=== PATIENT | female | born 1955 | race Caucasian/White ===

== ENCOUNTER 2021-12-12 15:14 | Observation (INO) ==
[2021-12-12] MEDS ORDERED: 0.9 % Sodium Chloride 1,000 ML IVC ONE (15:27)
[2021-12-12] MEDS ORDERED: Acetaminophen 650 MG RECTAL SUPP RC ONE (15:29)
[2021-12-12 15:45] LABS: Basophils % 0.3 %; Hemoglobin 12.4 g/dL (11.5-15.4); Immature Granulocytes % 0.3 % (0-4); Lymphocytes % 8.8 %; Mean Corpuscular HGB Conc 33.5 g/dL (31.6-35.5); Mean Corpuscular Hemoglobin 28.2 pg (28.0-33.3); Mean Corpuscular Volume 84.1 fL (83.0-100.0); Mean Platelet Volume 9.7 fL (9.4-12.4); Monocytes # 0.8 K/mcL (0.0-1.3); Monocytes % 7.1 %; Neutrophils # 9.6 K/mcL (1.6-8.9); Platelet Count 206 K/mcL (140-400); Red Cell Distribution Width 13.9 % (11.5-14.5); Segmented Neutrophils % 83.5 %; White Blood Count 11.5 K/mcL (4.3-11.1)
[2021-12-12 15:46] LABS: Bilirubin,Urine Negative (Negative); Blood,Urine Small (Negative); Clarity,Urine Cloudy (Clear); Color,Urine Yellow (Yellow); Glucose,Urine (UA) Normal (Normal); Ketones,Urine Negative (Negative); Leukocyte Esterase,Urine Small (Negative); Nitrite,Urine Positive (Negative); Protein,Urine 100 mg/dL (Neg-Trace); Specific Gravity,Urine >= 1.030 (1.010-1.025); Urobilinogen,Urine Normal (Normal)
[2021-12-12 15:51] LABS: INR 1.4; Prothrombin Time 15.5 Seconds (9.4-12.1)
[2021-12-12 15:53] LABS: VBG HCO3 23 mEq/L (21-27); VBG PCO2 30 mmHg (41-51); VBG PH 7.49 pH Units (7.32-7.42); VBG PO2 71 mmHg (25-50)
[2021-12-12 15:54] LABS: Activated Partial Thrombo Time 31.2 Seconds (26.0-36.0)
[2021-12-12 15:55] LABS: Bacteria,Urine Many per hpf (None-Few); Squamous Epithelial Cell,Urine Moderate per hpf (None-Few); WBC,Urine 30-50 per hpf (0-3)
[2021-12-12 16:02] LABS: Troponin I 0.03 ng/mL (< 0.04)
[2021-12-12 16:03] LABS: Amphetamine Screen,Urine Negative ng/mL (Cutoff=1000); Barbiturate Screen,Urine Negative ng/mL (Cutoff=200); Benzodiazepines Screen,Urine Negative ng/mL (Cutoff=200); Cannabinoid Screen,Urine Negative ng/mL (Cutoff = 50); Cocaine Screen,Urine Negative ng/mL (Cutoff= 300); Opiate Screen,Urine Negative ng/mL (Cutoff=300); Phencyclidine Screen,Urine Negative ng/mL (Cutoff=25)
[2021-12-12 16:04] LABS: Alanine Aminotransferase 17 Units/L (7-52); Albumin 3.6 g/dL (3.5-5.7); Albumin/Globulin Ratio 0.9 (1.1-2.2); Alkaline Phosphatase 92 Units/L (34-104); Aspartate Amino Transferase 23 Units/L (13-39); BUN/Creatinine Ratio 18 (6-26); Bilirubin,Direct 0.3 mg/dL (0.0-0.2); Bilirubin,Indirect 0.8 mg/dL (0.0-1.0); Bilirubin,Total 1.1 mg/dL (0.3-1.0); Blood Urea Nitrogen 18 mg/dL (8-23); Calcium 9.6 mg/dL (8.6-10.3); Carbon Dioxide 25 mEq/L (23-29); Chloride 97 mEq/L (98-107); Creatine Kinase 44 Units/L (30-223); Ethanol < 10 mg/dL (Less than 10); Globulin 3.8 g/dL (2.4-3.5); Glucose 169 mg/dL (70-105); Osmolality,Calculated 282 (280-300); Potassium 3.7 mEq/L (3.5-5.1); Sodium 133 mEq/L (136-145); Total Protein 7.4 g/dL (6.4-8.9); eGFR For African Americans > 60 (> 60); eGFR For Non-African Americans 54 (> 60)
[2021-12-12] MEDS ORDERED: cefTRIAXone 1,000 MG in 0.9 % Sodium Chloride Mini Bag 100 ML IVPB ONE (16:04)
[2021-12-12] MEDS ORDERED: 0.9 % Sodium Chloride 500 ML IVC ONE (16:04)
[2021-12-12] MEDS ORDERED: levoFLOXacin 750 MG/150 ML 750 MG/150 ML BAG IVPB ONE (16:04)
[2021-12-12 16:16] LABS: Thyroid Stimulating Hormone 3.611 mcIU/mL (0.340-5.600)
[2021-12-12] MEDS ORDERED: 0.9 % Sodium Chloride 1,000 ML IVC SCH ×2 (16:45→18:24)
[2021-12-12] MEDS ORDERED: Albuterol 2.5 MG/3 ML NEBULIZER IH PRN (18:24)
[2021-12-12] MEDS ORDERED: Ondansetron 4 MG/2 ML VIAL IVP PRN (18:24)
[2021-12-12] MEDS ORDERED: Naloxone 0.4 MG/ML INJ IVP PRN (18:24)
[2021-12-12] MEDS: 0.9 % Sodium Chloride 1,000 ML IVC SCH (19:51)
[2021-12-12] MEDS ORDERED: carvediloL 6.25 MG TABLET PO SCH (21:00)
[2021-12-12] MEDS ORDERED: *HR* Midazolam HCl 5 MG/5 ML VIAL IVP ONE (22:19)
[2021-12-12] MEDS ORDERED: levETIRAcetam 1,000 MG in 0.9 % Sodium Chloride 100 ML IVPB ONE (23:00)
[2021-12-12] MEDS ORDERED: Acetaminophen 650 MG RECTAL SUPP RC PRN (23:32)
[2021-12-13 00:39] VITALS: BP 110/67; PULSE 84; RESP 20; TEMP 98.6; O2SAT 99
[2021-12-13] MEDS: 0.9 % Sodium Chloride 1,000 ML IVC SCH (00:45)
[2021-12-13 00:49] LABS: Basophils % 0.3 %; Hematocrit 34.1 % (35.3-44.9); Hemoglobin 11.2 g/dL (11.5-15.4); Immature Granulocytes % 0.3 % (0-4); Lymphocytes # 0.7 K/mcL (0.6-4.6); Lymphocytes % 9.6 %; Mean Corpuscular HGB Conc 32.8 g/dL (31.6-35.5); Mean Corpuscular Hemoglobin 28.4 pg (28.0-33.3); Mean Corpuscular Volume 86.5 fL (83.0-100.0); Mean Platelet Volume 9.9 fL (9.4-12.4); Monocytes # 0.7 K/mcL (0.0-1.3); Monocytes % 8.7 %; Neutrophils # 6.3 K/mcL (1.6-8.9); Platelet Count 149 K/mcL (140-400); Red Blood Count 3.94 M/mcL (3.82-4.97); Red Cell Distribution Width 14.1 % (11.5-14.5); Segmented Neutrophils % 81.1 %; White Blood Count 7.7 K/mcL (4.3-11.1)
[2021-12-13 01:02] LABS: BUN/Creatinine Ratio 19 (6-26); Blood Urea Nitrogen 17 mg/dL (8-23); Calcium 8.7 mg/dL (8.6-10.3); Carbon Dioxide 22 mEq/L (23-29); Chloride 106 mEq/L (98-107); Glucose 142 mg/dL (70-105); Magnesium 1.6 mg/dL (1.6-2.6); Osmolality,Calculated 290 (280-300); Phosphorous 2.5 mg/dL (2.7-4.5); Potassium 3.2 mEq/L (3.5-5.1); Sodium 138 mEq/L (136-145); eGFR For African Americans > 60 (> 60); eGFR For Non-African Americans > 60 (> 60)
[2021-12-13] MEDS ORDERED: *HR* Enoxaparin 40 MG/0.4 ML SYRINGE SQ SCH (07:00)
[2021-12-13] MEDS ORDERED: *HR* SitaGLIPtin 100 MG TABLET PO SCH (09:00)
[2021-12-13] MEDS ORDERED: Isosorbide MONOnitrate (24 HR) 30 MG TAB.ER.24H PO SCH (09:00)
[2021-12-13] MEDS ORDERED: Aspirin Enteric Coated 81 MG Tablet PO SCH (09:00)
[2021-12-13 12:48] LABS: Adenovirus F 40/41 PCR Not detected (Not detect); Astrovirus PCR Not detected (Not detect); C.difficile Toxin A/B Gene PCR Not detected (Not detect); Campylobacter by PCR Not detected (Not detect); Cryptosporidium by PCR Not detected (Not detect); Cyclospora cayetanensis PCR Not detected (Not detect); Entamoeba histolytica PCR Not detected (Not detect); Enteroaggregative E.coli(EAEC) Not detected (Not detect); Enteropathogenic E.coli(EPEC) Not detected (Not detect); Enterotoxigenic E.coli (ETEC) Not detected (Not detect); Giardia lamblia PCR Not detected (Not detect); Norovirus GI/GII PCR Not detected (Not detect); Plesiomonas shigelloides PCR Not detected (Not detect); Rotavirus A PCR Not detected (Not detect); Salmonella PCR Not detected (Not detect); Sapovirus PCR Not detected (Not detect); Shig/EnteroinvasiveE coli EIEC Not detected (Not detect); Shigalike tox-prod E coli STEC Not detected (Not detect); Vibrio PCR Not detected (Not detect); Vibrio cholerae PCR Not detected (Not detect); Yersinia enterocolitica PCR Not detected (Not detect)
== END 2021-12-13 02:08 | disposition short-term general hospital (02) ==
LOC: EMEROOGRE 15:14 → INPGRE 15:14 → UNDODISIN 12-13 02:08
PROVIDERS: ADMIT Family Medicine; ATTEND Family Medicine